=== PATIENT | male | born 1950 | race Caucasian/White ===

== ENCOUNTER → 2016-11-10 | Outpatient (CLI) | payer OTHER, MEDICARE, BC ==
[~2016-11-10] MED LIST: ASPI1TAB69 PO; ASPI325T PO; ATOR20TA15 PO; ATOR20TA42 PO; CLOP75 PO; ENAL5TAB PO; ENAL5TAB98 PO; METO25 PO; METO25TA3 PO; OMEP20TA PO; VICO7.5T PO
--- NOTE | 2016-11-11 10:03 | RSPPFT ---
DATE OF PROCEDURE: 11/10/16 COMMENTS: Spirometry shows FVC of 3.9 at 106% of predicted, FEV1 of 2.3 at 86%, FEV1/FVC ratio is decreased. Flow is decreased at FEF 25, FEF 50, FEF 75 and FEF 25-75. There is a mild response after acutely inhaled bronchodilator treatment. Lung volumes show residual volume is increased. TLC is increased. Diffusion capacity is normal. Flow volume loop indicates an obstructive pattern. IMPRESSION: 1. Mild obstructive lung disease. 2. Lung volumes show hyperinflation. 3. Mild response after bronchodilator treatment. 4. Normal diffusion capacity.
== END ==
LOC: HRSP 07:46
PROVIDERS: ATTEND Specialist
DX: J44.9 Chronic obstructive pulmonary disease, unspecified (principal)
CPT/HCPCS: 94060; 94726; 94729

== ENCOUNTER 2017-02-04 14:19 | Emergency (ER) | payer MEDICARE, BC ==
[~2017-02-04] VITALS: Ht 180.3 cm; Wt 86.0 kg
[~2017-02-04 14:19] MED LIST changes: -ASPI1TAB69 PO; -ATOR20TA15 PO; -ENAL5TAB PO; -METO25TA3 PO; -OMEP20TA PO
[2017-02-04 14:22] VITALS: BP 154/87; PULSE 74; RESP 18; TEMP 98.2; O2SAT 98
[2017-02-04] MEDS ORDERED: ASPI1TAB69 PO (14:56)
[2017-02-04] MEDS ORDERED: ENAL5TAB PO (14:56)
[2017-02-04] MEDS ORDERED: OMEP20TA PO (14:56)
[2017-02-04] MEDS ORDERED: ATOR20TA15 PO (14:56)
[2017-02-04] MEDS ORDERED: METO25TA3 PO (14:56)
--- NOTE | 2017-02-04 15:08 | PD ---
HPI Chief Complaint: Head Injury Time Seen by Provider: 14:47 Travel History International Travel<30 days: No Contact w/Intl Traveler<30days: No Traveled to known affect area: No History of Present Illness HPI Patient 66-year-old male presents emergency department [place]. Patient states he was "acting like Again" and went up to catch a football when he fell down on his bottom and then extended did hit his head hard on the hard sand [place]. Patient does endorse loss of consciousness and mild nausea. Family says he was mildly confused for a few moments but his return to normal mental status. He is on aspirin but no other blood thinners. Denies any focal weakness denies any visual difficulties. Denies any neck pain at this time. Denies any other injuries denies any chest pain shortness of breath abdominal pain extremity pain. PFSH Past Medical History Cancer: Yes (SKIN) Cardiovascular Problems: Yes (5 stents) Diabetes: No Glaucoma: No Hepatitis: No Hiatal Hernia: No Hypertension: No Myocardial Infarction: Yes Thyroid Disease: No Tetanus Vaccination: > 5 Years Influenza Vaccination: Yes Past Surgical History Coronary Stent: Yes (X5) Pacemaker: No Other Surgery: Yes Social History Alcohol Use: Yes (WINE OCCAS.) Tobacco Use: No (QUIT 2007) Substance Use: No Allergies-Medications (Allergen,Severity, Reaction): Coded Allergies: No Known Allergies (Unverified , 02/04/17) Reported Meds & Prescriptions Reported Meds & Active Scripts Active Reported Omeprazole 20 Mg Tab 20 Mg PO DAILY Atorvastatin (Atorvastatin Calcium) 20 Mg Tab 20 Mg PO HS Enalapril (Enalapril Maleate) 5 Mg Tab 5 Mg PO DAILY Aspirin 81 Mg Tabdr 81 Mg PO DAILY Metoprolol Tartrate 25 Mg Tab 25 Mg PO DAILY Review of Systems Except as stated in HPI: all other systems reviewed are Neg Physical Exam Narrative GENERAL: Well-developed well-nourished no apparent distress SKIN: Focused skin assessment warm/dry. HEAD: No raccoons eyes no reid signs, there is a sizable contusion over the occipital region, no laceration or abrasion.. Normocephalic. EYES: Pupils equal and round. No scleral icterus. No injection or drainage. ENT: No nasal bleeding or discharge. Mucous membranes pink and moist. NECK: Trachea midline. No JVD. CARDIOVASCULAR: Regular rate and rhythm. No murmur appreciated. RESPIRATORY: No accessory muscle use. Clear to auscultation. Breath sounds equal bilaterally. GASTROINTESTINAL: Abdomen soft, non-tender, nondistended. Hepatic and splenic margins not palpable. MUSCULOSKELETAL: No obvious deformities. No clubbing. No cyanosis. No edema. NEUROLOGICAL: Awake and alert. Cranial nerves II through XII are grossly intact and nonfocal, 5 out of 5 strength in all 4 extremity's, cerebellar testing negative. PSYCHIATRIC: Appropriate mood and affect; insight and judgment normal. Data Data Last Documented VS Vital Signs Date Time Temp Pulse Resp B/P Pulse Ox O2 Delivery O2 Flow Rate FiO2 02/04/17 14:45 74 16 Room Air 02/04/17 14:22 98.2 154/[address] Brain W/O Iv Contrast(Rout) (02/04/17 ) Ct Cerv Spine W/O Contrast (02/04/17 ) MDM Medical Decision Making Medical Screen Exam Complete: Yes Emergency Medical Condition: Yes Differential Diagnosis Closed head injury, subarachnoid hemorrhage, intracranial injury, Narrative Course Patient 66-year-old male healthy not on blood thinners presents after closed head injury. He had an occipital hematoma. He is neurologically nonfocal. He is a mandatory in the emergency Department. A CT head and C-spine were obtained which showed no acute injury. Patient is aware of his foraminal stenosis and has been doing acupuncture for this. He requests discharge. He is here with 2 family members are willing to take him home. Discussed symptomatically management returned ED criteria follow-up the primary care physician. Last [address] 02/04/17 0000 Signed Impressions: Service Date/Time: Saturday, February 04, 2017 15:30 - CONCLUSION: Unremarkable study. Anthony Kyle MD Cervical Spine CT 02/04/17 0000 Signed Impressions: Service Date/Time: Saturday, February 04, 2017 15:30 - CONCLUSION: Right neuroforamina compromise and lateral recess compromise C5-6. Anthony Kyle MD Diagnosis Primary Impression: Closed head injury Qualified Code: S09.90XA - Closed head injury, initial encounter Disposition: 01 DISCHARGE HOME Condition: Stable Flavio Gamez MD Feb 04, 2017 15:08
--- NOTE | 2017-02-04 15:50 | RADRPT ---
EXAM DATE/TIME: 02/04/2017 15:30 [facility] COMPARISON: No previous studies available for comparison. INDICATIONS : Fall, hit head on sand. Loss of consciousness. RADIATION DOSE: 36.03 CTDIvol (mGy) MEDICAL HISTORY : Cardiovascular disease. SURGICAL HISTORY : None. ENCOUNTER: Initial ACUITY: 1 day PAIN SCALE: 6/10 LOCATION: cranial TECHNIQUE: Multiple contiguous axial images were obtained of the head. Using automated exposure control and adjustment of the mA and/or kV according to patient size, radiation dose was kept as low as reasonably achievable to obtain optimal diagnostic quality images. FINDINGS: There is no evidence for intracranial hemorrhage, mass effect, mass lesions, edema, or extra-axial fl uid collections. The visualized bony structures appear intact. The ventricles are normal size for t he patient's age. There are no signs of acute infarction for technique. CONCLUSION: Unremarkable study. Anthony Kyle MD on February 04, 2017 at 15:47 Board Certified Radiologist. This report was verified electronically.
--- NOTE | 2017-02-04 16:04 | RADRPT ---
EXAM DATE/TIME: 02/04/2017 15:30 [facility] COMPARISON: No previous studies available for comparison. INDICATIONS : Fall, hit head on sand. RADIATION DOSE: 21.60 CTDIvol (mGy) MEDICAL HISTORY : Cardiovascular disease. SURGICAL HISTORY : None. ENCOUNTER: Initial ACUITY: 1 day PAIN SCALE: 0/10 LOCATION: neck TECHNIQUE: Volumetric scanning of the cervical spine was performed. Multiplanar reconstructions in the sagittal, coronal and oblique axial planes were performed. Using automated exposure control and adjustment o f the mA and/or kV according to patient size, radiation dose was kept as low as reasonably achievable to obtain optimal diagnostic quality images. FINDINGS: No evidence of subluxation. No definite fracture is seen for technique. C2-C3: There is no evidence for any significant compromise to the thecal sac, or the exiting nerve roots. N o appreciable thecal sac stenosis is seen. The neural foramina and lateral recess appear patent bila terally. C3-C4: There is no evidence for any significant compromise to the thecal sac, or the exiting nerve roots. N o appreciable thecal sac stenosis is seen. The neural foramina and lateral recess appear patent bila terally. C4-C5: Slight bulging disc and hypertrophic changes are seen with indentation on the thecal sac and no signi ficant compromise to the thecal sac or the exiting nerve roots. C5-C6: Moderate degenerative changes are seen within the disc space and facets. There is moderate neural for rufina compromise on the right due to asymmetrical bulging disc and hypertrophic changes. Moderate lat eral recess compromise is seen on the right due to hypertrophic changes and bulging disc. Slight bulg ing disc and hypertrophic changes are seen with indentation on the thecal sac and no significant comp romise to the thecal sac. C6-C7: Moderate degenerative changes are seen within the disc space and facets. Slight bulging disc and hype rtrophic changes are seen with indentation on the thecal sac and no significant compromise to the the carter sac or the exiting nerve roots. C7-T1: There is no evidence for any significant compromise to the thecal sac, or the exiting nerve roots. N o appreciable thecal sac stenosis is seen. The neural foramina and lateral recess appear patent bila terally. CONCLUSION: Right neuroforamina compromise and lateral recess compromise C5-6. Anthony Kyle MD on February 04, 2017 at 16:01 Board Certified Radiologist. This report was verified electronically.
== END 2017-02-04 17:09 | disposition home or self-care (01) ==
LOC: NEPE 14:19
DX: S09.90XA Unspecified injury of head, initial encounter (principal); W19.XXXA Unspecified fall, initial encounter; Y93.61 Activity, american tackle football; Y92.832 Beach as the place of occurrence of the external cause
CPT/HCPCS: 70450; 72125; 99284